=== PATIENT | male | born 1985 | race Caucasian/White ===

== ENCOUNTER 2021-05-13 10:53 | Emergency (ER) | payer OTHER, MEDICAID ==
[~2021-05-13] VITALS: Ht 177.8 cm; Wt 95.3 kg
[~2021-05-13 10:53] MED LIST: NOR10T
[2021-05-13 10:55] VITALS: BP 152/96
== END 2021-05-13 11:34 | disposition home or self-care (01) ==
LOC: ER 10:53
DX: S20.212A Contusion of left front wall of thorax, initial encounter (principal); F17.210 Nicotine dependence, cigarettes, uncomplicated; Z79.899 Other long term (current) drug therapy; Y04.8XXA Assault by other bodily force, initial encounter; Y93.89 Activity, other specified; Y92.89 Other specified places as the place of occurrence of the external cause; Y99.8 Other external cause status
CPT/HCPCS: 71101